=== PATIENT | male | born 1990 | race Caucasian/White ===

== ENCOUNTER 2019-12-02 12:54 | Emergency (ER) | payer BC ==
[2019-12-02 13:39] VITALS: BP 115/55
--- NOTE | 2019-12-02 13:48 | UC ---
General HPI - HPI Summary HPI Summary: States 3 days ago started with bodyaches, low energy and headache. Sore throat , fever, and nausea. Has been able to drink liquids and crackers. Not currently nauseated. congested but not significantly coughing. Was dizzy earlier, no has resolved. Did not get a flu shot. meds reviewed Has a 1 and 3 year old at home and trying not to get them sick - History of Current Complaint Chief Complaint: UCGeneralIllness Stated Complaint: FLULIKE SYMPTOMS Time Seen by Provider: 12/02/19 13:37 Pain Intensity: 6 - Allergy/Home Medications Allergies/Adverse Reactions: Allergies Allergy/AdvReac Type Severity Reaction Status Date / Time No Known Allergies Allergy Verified 12/02/19 13:39 Home Medications: Home Medications D-Methorphan/PE/Acetaminophen [Daytime Cold-Flu Liquid] 118 ml PO ONCE PRN 12/02 [History Confirmed 12/02/19] PMH/Surg Hx/FS Hx/Imm Hx Previously Healthy: Yes - Surgical History Surgical History: Yes Surgery Procedure, Year, and Place: L ear, R carpel tunnel - Social History Alcohol Use: Occasionally Substance Use Type: None Smoking Status (MU): Never Smoked Tobacco Review of Systems All Other Systems Reviewed And Are Negative: Yes Constitutional: Positive: Fever ENT: Positive: Sore Throat, Nasal Discharge Physical Exam Triage Information Reviewed: Yes Appearance: Well-Appearing Vital Signs: Initial Vital Signs Temp 99.3 F 12/02/19 13:34 Pulse 82 12/02/19 13:34 Resp 16 12/02/19 13:34 BP 115/55 12/02/19 13:34 Pulse Ox 100 12/02/19 13:34 Vital Signs Reviewed: Yes ENT: Positive: Pharyngeal erythema, Nasal drainage, TMs normal Neck: Positive: Supple, Enlarged Nodes @ - anterior cervical chain Respiratory: Positive: Lungs clear, Normal breath sounds Cardiovascular: Positive: RRR, No Murmur Abdomen Description: Positive: Soft Course/Dx - Course Course Of Treatment: This is a 29 yr old with fever, sore throat and bodyaches Flu: A positive Rapid Strep: Positive Nontoxic appearing Plan Patient positive for flu A and strep throat Start Amoxicillin as prescribed Continue to rest, fluids and ibuprofen as needed for pain/fever If symptoms persist or worsen recommend follow up with PCP or return to urgent care - Diagnoses Provider Diagnosis: Strep throat, Influenza A Discharge ED - Sign-Out/Discharge Documenting (check all that apply): Patient Departure All imaging exams completed and their final reports reviewed: No Studies - Discharge Plan Condition: Fair Disposition: HOME Prescriptions: Amoxicillin PO (*) [Amoxicillin 500 MG CAP*] 500 mg PO Q12H #20 cap Patient Education Materials: Strep Throat (ED), Influenza (ED) Forms: *Work Release Referrals: No Primary Care Phys,NOPCP [Primary Care Provider] - Additional Instructions: Patient positive for flu A and strep throat Start Amoxicillin as prescribed Continue to rest, fluids and ibuprofen as needed for pain/fever If symptoms persist or worsen recommend follow up with PCP or return to urgent care - Billing Disposition and Condition Condition: FAIR Disposition: Home
[2019-12-02 13:51] LABS: Influenza A Molecular POSITIVE (Negative)
== END 2019-12-02 14:08 | disposition home or self-care (01) ==
LOC: UCCORT 12:54
DX: J10.1 Influenza due to other identified influenza virus with other respiratory manifestations (principal); J02.0 Streptococcal pharyngitis
CPT/HCPCS: 87651; 99202; G0463